=== PATIENT | female | born 1975 | race Asian ===

== ENCOUNTER 2017-02-12 13:02 | Outpatient (CLI) | payer OTHER ==
--- NOTE | 2017-02-12 14:27 | Ultrasound Report ---
BILATERAL DIGITAL DIAGNOSTIC MAMMOGRAM with CAD and RIGHT BREAST ULTRASOUND: 02/12/17 CLINICAL: Right breast lump felt by her doctor. She also reports a greenish dark almost black bilateral nipple discharge. COMPARISON:None. These are baseline studies. FINDINGS: The breasts are heterogeneously dense, which may obscure small masses.No mass, architectural distortion or suspicious calcifications . No mammographic finding at a right periareolar palpable marker. Ultrasound of the right breast (including all four quadrants and the retroareolar area) was performed. An oval solid smooth isoechoic solid retroareolar mass at 12 o'clock correlates with the palpable lump and measures 1.4 x 1.4 x 0.7 cm. It demonstrates posterior enhancement. An oval cluster of tiny cysts at 10 o'clock 6 cm from the nipple measures 1.2 x 1.3 x 0.4 cm. No other mass or cysts. IMPRESSION: 1. A solid 1.4 cm right retroareolar palpable mass. Recommend ultrasound guided needle biopsy to confirm benignity. 2. Probably benign clustered microcysts at 10 o'clock. Recommend six month followup ultrasound. BI-RADS CATEGORY: 4--Suspicious I discussed the findings and the recommendations (for needle core biopsy of the palpable mass at 12 o'clock near the nipple and recommendation for six month followup of the clustered microcysts at 10 o'clock) with the patient at the time of the examination. ACR BI-RADS MAMMOGRAPHIC CODES: 0 = Needs additional imaging evaluation; 1 = Negative; 2 = Benign; 3 = Probably benign; 4 = Suspicious; 5 = Malignant; 6 = Known biopsy-proven malignancy COMMENT: 1. Dense breast tissue, i.e., adenosis, fibrocystic changes, etc., may obscure an underlying neoplasm. 2. Approximately 10% of cancers are not detected with mammography. 3. A negative mammography report should not delay biopsy if a clinically suspicious mass is present. COMMENT: Patient follow-up letters are generated by our [employer] application.
== END 2017-02-12 13:03 | disposition home or self-care (01) ==
LOC: SPVWC 13:02
PROVIDERS: ATTEND Internal Medicine
DX: N63.10 Unspecified lump in the right breast, unspecified quadrant (principal); N64.52 Nipple discharge
CPT/HCPCS: 76641; G0204; 77066

== ENCOUNTER 2017-02-27 13:08 | Outpatient (CLI) | payer OTHER ==
--- NOTE | 2017-02-27 14:14 | Mammography Report ---
RIGHT DIGITAL DIAGNOSTIC MAMMOGRAM: 02/27/17 13:08:00 CLINICAL: For clip placement immediately status post ultrasound biopsy of a solid palpable 1.4 cm retroareolar mass. COMPARISON:02/12/17 FINDINGS: A retroareolar biopsy clip is now identified and correlates with the palpable finding identified on ultrasound. IMPRESSION: Concordant clip placement status post ultrasound biopsy. BI-RADS CATEGORY: 4A--Mildly Suspicious Pathology pending.
--- NOTE | 2017-02-27 14:33 | Ultrasound Report ---
ULTRASOUND GUIDED NEEDLE CORE BIOPSY RIGHT BREAST WITH CLIP PLACEMENT: 02/27/17 CLINICAL: A palpable retroareolar mass. COMPARISON :02/12/17 FINDINGS: The procedure was explained to the patient and informed consent was obtained. Ultrasound demonstrated the previously described oval solid retroareolar palpable mass.. I marked the breast with a felt tip marker and a time out was called. The skin was prepped with Betadine and anesthetized with 1% lidocaine. Needle core biopsy was performed through a tiny dermatotomy using ultrasound guidance, 2% lidocaine with epinephrine for deep anesthesia and a 14-gauge Achieve biopsy device. 3 cores were obtained and placed in formalin. A clip was deployed within the mass. The patient tolerated the procedure well and there were no apparent complications. Hemostasis was readily achieved and a sterile dressing was applied. A two view mammogram demonstrated satisfactory placement of the clip. She left the department in good condition and was given instructions for wound care and followup. IMPRESSION: Uncomplicated ultrasound guided needle core biopsy with clip placement right breast.
== END 2017-02-27 13:09 | disposition home or self-care (01) ==
LOC: SPVWC 13:08
PROVIDERS: ATTEND Internal Medicine
DX: R92.0 Mammographic microcalcification found on diagnostic imaging of breast (principal)
CPT/HCPCS: 19083; 88305; A4648; G0206

== ENCOUNTER 2021-03-28 14:11 | Emergency (ER) | payer SELFPAY ==
[2021-03-28 15:33] VITALS: BP 98/65
--- NOTE | 2021-03-28 15:49 | Event Note ---
ED Screening Note Date of service: 03/28/21 Time: 15:44 ED Screening Note: 45-year-old female with a known history of beats to return to and marijuana use but no other significant past history presents to the ER today with complaints of a headache. Patient states that she has been having headaches off and on for the past 2 months. She states that she has been seen her PCP for the headaches and they have been treated for sinus infections. The most recent antibiotic she received was about 2 weeks ago but she still continues to have the headache. She states that what concerned her was this morning she was having blurry vision to both eyes, which has since resolved she states that currently she is just having some photophobia especially to the left eye. She states that she last had an MRI of her brain in 2016 to evaluate for pituitary tumor but she has not followed up with neurology since. She is scheduled to have another MRI next week Thursday. Quick screening eval: Patient is well-appearing, nontoxic and not in any significant distress. Patient is awake alert and oriented x3. She has no gross neuro deficits on exam. Gait was normal. Vital signs were stable. This initial assessment/diagnostic orders/clinical plan/treatment(s) is/are subject to change based on patients health status, clinical progression and re- assessment by fellow clinical providers in the ED. Further treatment and workup at subsequent clinical providers discretion. Patient/guardian urged not to elope from the ED as their condition may be serious if not clinically assessed and managed. Initial orders include: After screening, Patient was placed placed in MSE7 for further evaluation but she decided to leave without completing evaluation and treatment because she states that she was able to get an appointment for MRI next Thursday and will follow up with her PCP. Patient left without waiting to sign AMA.
== END 2021-03-28 16:27 ==
LOC: ED 14:11
DX: H53.8 Other visual disturbances (principal); Z53.21 Procedure and treatment not carried out due to patient leaving prior to being seen by health care provider